=== PATIENT | male | born 1965 | race African-American/Black ===

== ENCOUNTER 2022-09-20 13:33 | Inpatient (IN) | payer OTHER ==
[2022-09-20 14:38] VITALS: BMI 17.9
[2022-09-20] MEDS ORDERED: IBUPROFEN 600 MG TABLET (FP) PO PRN (21:21)
[2022-09-20] MEDS ORDERED: NALOXONE HCL (KLOXXADO) 8 MG SPRAY NS PRN (21:21)
[2022-09-20] MEDS ORDERED: ONDANSETRON *ODT* 4 MG TABLET SL PRN (21:21)
[2022-09-20] MEDS ORDERED: MAG HYDROX/AL HYDROX/SIMETH 30 ML UNIT-DOSE CUP PO PRN (21:21)
[2022-09-20] MEDS ORDERED: BENZOCAINE/MENTHOL (CHLORASEPTIC ) LOZENGE MM PRN (21:21)
[2022-09-20] MEDS ORDERED: NICOTINE POLACRILEX 2 MG GUM BUC PRN (21:21)
[2022-09-20] MEDS ORDERED: guaiFENesin 600 MG TABLET.ER (FP) PO PRN (21:21)
[2022-09-20] MEDS ORDERED: LOPERAMIDE HCL 2 MG CAPSULE PO PRN (21:21)
[2022-09-20] MEDS ORDERED: POLYETHYLENE GLYCOL (HEALTHYLAX) 3350 17 GM PACKET PO PRN (21:21)
[2022-09-20] MEDS ORDERED: BENZONATATE 200 MG CAPSULE PO PRN (21:21)
[2022-09-20] MEDS ORDERED: BISMUTH SUBSALICYLATE 524 MG/30 ML PO PRN (21:21)
[2022-09-20] MEDS ORDERED: MAGNESIUM HYDROX 2400MG/30ML ORAL SUSPENSION 30 ML CUP PO PRN (21:21)
[2022-09-20] MEDS ORDERED: NALOXONE HCL 0.4 MG/ML VIAL IM PRN (21:21)
[2022-09-20] MEDS ORDERED: IBUPROFEN 400 MG TABLET (FP) PO PRN (21:21)
[2022-09-20] MEDS ORDERED: ACETAMINOPHEN 325 MG TABLET (FP) PO PRN (21:21)
[2022-09-20] MEDS ORDERED: MELATONIN 5 MG TABLETS PO SCH (22:00)
[2022-09-20] MEDS ORDERED: THIAMINE HCL 100 MG TABLET (FP) PO SCH (22:00)
[2022-09-21 09:45] VITALS: BP 121/88; PULSE 109; RESP 16; TEMP 97.5
[2022-09-21] MEDS ORDERED: PRENATAL VITAMINS W/ FOLIC ACID TABLET (FP) PO SCH (10:00)
[2022-09-21 11:38] LABS: HEMATOCRIT 34.8 % (35.4-49); HEMOGLOBIN 11.7 GM/dL (11.7-16.9); MCH 33.4 pg (25.7-33.7); MCHC 33.5 g/dl (32.0-35.9); MEAN CELL VOLUME 99.5 fl (80-96); PLATELET COUNT 307 10^3/uL (134-434); RDW 13.5 % (11.9-15.9); WHITE BLOOD COUNT 5.6 K/mm3 (4.0-10.0)
[2022-09-21 11:50] LABS: POTASSIUM 3.8 mmol/L (3.5-5.1)
[2022-09-21 11:56] LABS: CALCIUM 9.1 mg/dL (8.5-10.1)
[2022-09-21 11:57] LABS: ALBUMIN 3.3 g/dl (3.4-5.0)
[2022-09-21 11:59] LABS: CREATININE 0.6 mg/dL (0.55-1.3)
[2022-09-21 12:00] LABS: BILIRUBIN,TOTAL 0.5 mg/dL (0.2-1); TOT PROT 7.2 g/dl (6.4-8.2)
== END 2022-09-21 10:42 | disposition home or self-care (01) | DRG 775 ==
LOC: YASAS 13:33 → Y6N 21:37
PROVIDERS: ADMIT Allergy & Immunology; ATTEND Allergy & Immunology
PROC: HZ2ZZZZ Detoxification Services for Substance Abuse Treatment (ICD-10-PCS; principal; 2022-09-20)
DX: F10.20 Alcohol dependence, uncomplicated (principal); F12.20 Cannabis dependence, uncomplicated; F17.210 Nicotine dependence, cigarettes, uncomplicated; D50.9 Iron deficiency anemia, unspecified; Z86.69 Personal history of other diseases of the nervous system and sense organs
CPT/HCPCS: 36415; 80053; 85027; 86780; 93005; 93010